=== PATIENT | female | born 1990 | race Caucasian/White ===

== ENCOUNTER → 2016-05-29 | Outpatient (CLI) | payer OTHER ==
[~2016-05-29] MED LIST: IBUP-1222 PO
== END | disposition home or self-care (01) ==
LOC: CFH 14:08
PROVIDERS: ATTEND Family Medicine
DX: N63 Unspecified lump in breast (principal); Z80.3 Family history of malignant neoplasm of breast

== ENCOUNTER → 2016-06-12 | Outpatient (CLI) | payer OTHER | END | disposition home or self-care (01) | LOC: CFH 09:14 | PROVIDERS: ATTEND Nurse Practitioner Primary Care | DX: Z83.2 Family history of diseases of the blood and blood-forming organs and certain disorders involving the immune mechanism (principal) | CPT/HCPCS: 36415; 81241 ==

== ENCOUNTER 2017-07-30 11:47 | Outpatient (CLI) | payer OTHER ==
[~2017-07-30] VITALS: Ht 170.2 cm; Wt 90.9 kg
[2017-07-30 12:25] LABS: BASOPHILS # (AUTO) 0.05 x10^3/uL (0-0.1); BASOPHILS % (AUTO) 0 % (0-1); EOSINOPHILS # (AUTO) 0.04 x10^3/uL (0-0.4); EOSINOPHILS % (AUTO) 0 % (1-7); LYMPHOCYTES # (AUTO) 2.44 x10^3/uL (1-3.4); LYMPHOCYTES % (AUTO) 17 % (22-44); MD NO; MEAN CORPUSCULAR HGB CONC 34.6 g/dL (32.4-35.8); MEAN CORPUSCULAR VOLUME 95.3 fL (80-100); MEAN PLATELET VOLUME 9.1 fL (7.4-10.4); MONOCYTES # (AUTO) 0.64 x10^3/uL (0.2-0.8); MONOCYTES % (AUTO) 5 % (2-9); NEUTROPHILS # (AUTO) 10.92 x10^3/uL (1.8-6.8); NEUTROPHILS % (AUTO) 78 % (42-75); PLATELET COUNT 198 x10^3/uL (130-400); RED BLOOD COUNT 4.16 x10^6/uL (3.82-5.3); RED CELL DISTRIBUTION WIDTH 13.5 % (9.6-15.2)
[2017-07-30 12:27] LABS: ALANINE AMINOTRANSFERASE 12 U/L (12-78); ALBUMIN 2.9 g/dL (3.4-5.0); ANION GAP 11 mmol/L (5-15); CALCIUM 8.9 mg/dL (8.5-10.1); CHLORIDE 107 mmol/L (98-107); CREATININE 0.57 mg/dL (0.55-1.02)
[2017-07-30 12:29] LABS: ALKALINE PHOSPHATASE 198 U/L (45-117); BILIRUBIN, DIRECT < 0.1 mg/dL (0.1-0.2); BILIRUBIN,TOTAL 0.2 mg/dL (0.2-1.0); TOTAL PROTEIN 6.7 g/dL (6.4-8.2)
[2017-07-30 12:32] VITALS: BP 130/78
[2017-07-30 12:32] LABS: CREATININE,URINE RANDOM 27.1 mg/dL
[2017-07-30 12:43] LABS: MICROSCOPIC INDICATED
[2017-07-30] MEDS ORDERED: PREN1TAB10 PO (13:25)
== END 2017-07-30 13:50 | disposition home or self-care (01) ==
LOC: LDOP 11:47
PROVIDERS: ATTEND Obstetrics & Gynecology
DX: Z36.9 Encounter for antenatal screening, unspecified (principal); O13.3 Gestational [pregnancy-induced] hypertension without significant proteinuria, third trimester; Z3A.38 38 weeks gestation of pregnancy
CPT/HCPCS: 36415; 59025; 76815; 80053; 81001; 82248; 82570; 83615; 84156; 84550; 85025; 99201; G0463

== ENCOUNTER 2017-08-06 21:46 | Outpatient (CLI) | payer OTHER ==
[~2017-08-06] VITALS: Ht 170.2 cm; Wt 92.0 kg
[~2017-08-06 21:46] MED LIST changes: +PREN1TAB10 PO
== END 2017-08-06 23:02 | disposition home or self-care (01) ==
LOC: LDOP 21:46
PROVIDERS: ATTEND Obstetrics & Gynecology
DX: O42.92 Full-term premature rupture of membranes, unspecified as to length of time between rupture and onset of labor (principal); Z3A.39 39 weeks gestation of pregnancy
CPT/HCPCS: 59025; 89060; 99211; G0463; Q0114

== ENCOUNTER 2017-08-11 15:05 | Inpatient (IN) | payer OTHER ==
[~2017-08-11] VITALS: Ht 170.2 cm; Wt 87.0 kg
[2017-08-11] MEDS ORDERED: OXYTOCIN 30U/ 0.9% NaCL 500ML 500 ML IV ONE (15:45)
[2017-08-11] MEDS ORDERED: OXYTOCIN 30U/ 0.9% NaCL 500ML 500 ML IV PRN (15:45)
[2017-08-11] MEDS ORDERED: LACTATED RINGERS 1,000 ML IV SCH ×2 (15:45→21:44)
[2017-08-11] MEDS ORDERED: D5%-LACTATED RINGERS 1,000 ML IV SCH (15:45)
[2017-08-11] MEDS ORDERED: PLEASE ENTER HEIGHT AND WEIGHT MC SCH (16:00)
[2017-08-11] MEDS ORDERED: FENTANYL PF 100 MCG/2ML IVPush PRN (16:00)
[2017-08-11] MEDS ORDERED: FENTANYL PF 100 MCG/2ML IV PRN (16:00)
[2017-08-11] MEDS ORDERED: TERBUTALINE 1 MG/ML, 1ML IVPush PRN (16:00)
[2017-08-11 16:16] LABS: BASOPHILS # (AUTO) 0.03 x10^3/uL (0-0.1); BASOPHILS % (AUTO) 0 % (0-1); EOSINOPHILS # (AUTO) 0.04 x10^3/uL (0-0.4); EOSINOPHILS % (AUTO) 0 % (1-7); LYMPHOCYTES # (AUTO) 2.52 x10^3/uL (1-3.4); LYMPHOCYTES % (AUTO) 19 % (22-44); MD NO; MEAN CORPUSCULAR HEMOGLOBIN 32.7 pg (27.0-34.8); MEAN CORPUSCULAR HGB CONC 34.5 g/dL (32.4-35.8); MEAN CORPUSCULAR VOLUME 94.7 fL (80-100); MEAN PLATELET VOLUME 9.2 fL (7.4-10.4); MONOCYTES # (AUTO) 0.51 x10^3/uL (0.2-0.8); MONOCYTES % (AUTO) 4 % (2-9); NEUTROPHILS # (AUTO) 10.08 x10^3/uL (1.8-6.8); NEUTROPHILS % (AUTO) 77 % (42-75); PLATELET COUNT 188 x10^3/uL (130-400); RED BLOOD COUNT 4.07 x10^6/uL (3.82-5.3); RED CELL DISTRIBUTION WIDTH 13.1 % (9.6-15.2)
[2017-08-11] MEDS ORDERED: LIDOCAINE/PF 1%, 30ML ONE (17:10)
[2017-08-11] MEDS ORDERED: MISOPROSTOL 200 MCG TABLET ONE (17:10)
[2017-08-11] MEDS ORDERED: NEWBORN KIT ONE (17:10)
[2017-08-11] MEDS ORDERED: OXYTOCIN 30U/ 0.9% NaCL 500ML 500 ML ONE (17:11)
[2017-08-11 17:22] VITALS: BP 125/67
[2017-08-11] MEDS ORDERED: DOCU-131 PO (17:58)
[2017-08-11] MEDS ORDERED: FENTANYL PF 100 MCG/2ML ONE ×2 (20:53→20:58)
[2017-08-11] MEDS ORDERED: BUPIVACAINE 0.25% ONE ×2 (20:53→20:58)
[2017-08-11] MEDS ORDERED: FENTANYL/BUPIV./NS/PF 250 ML EPIDCONT ONE ×2 (20:54→20:58)
[2017-08-11] MEDS ORDERED: LIDOCAINE/PF 1.5%-EPI 1:200K, 30ML ONE (20:58)
[2017-08-11] MEDS ORDERED: FENTANYL/BUPIV./NS/PF 250 ML EPIDCONT SCH (21:44)
[2017-08-11] MEDS ORDERED: LACTATED RINGERS 1,000 ML IVBOLUS PRN (22:00)
[2017-08-11] MEDS ORDERED: EPHEDRINE 50 MG/ML, 1ML IVPush PRN (22:00)
[2017-08-11] MEDS ORDERED: ONDANSETRON 2MG/ML, 2ML IVPush PRN (22:00)
[2017-08-12] MEDS ORDERED: OXYTOCIN 30U/ 0.9% NaCL 500ML 500 ML ONE (02:55)
[2017-08-12 03:40] VITALS: BP 101/59
[2017-08-12] MEDS: OXYTOCIN 30U/ 0.9% NaCL 500ML 500 ML IV SCH ×7 (05:17→13:53)
[2017-08-12] MEDS ORDERED: OXYTOCIN 30U/ 0.9% NaCL 500ML 500 ML IV SCH (05:17)
[2017-08-12] MEDS ORDERED: CALCIUM CARBONATE 500 MG TAB.CHEW PO PRN (05:30)
[2017-08-12] MEDS ORDERED: ONDANSETRON 2MG/ML, 2ML IV PRN (05:30)
[2017-08-12] MEDS ORDERED: HYDROcodone/APAP 5/325 TABLET PO PRN ×2 (05:30)
[2017-08-12] MEDS ORDERED: MISOPROSTOL 200 MCG TABLET PR PRN (05:30)
[2017-08-12] MEDS ORDERED: ACETAMINOPHEN 325 MG TABLET PO PRN ×2 (05:30)
[2017-08-12] MEDS: IBUPROFEN 600 MG TABLET PO PRN ×3 (05:46→20:46)
[2017-08-12 07:10] VITALS: BP 101/62
[2017-08-12] MEDS: DOCUSATE 100 MG CAPSULE PO PRN ×2 (08:34→20:46)
[2017-08-12] MEDS: ENOXAPARIN 40 MG/0.4 ML SQ SCH (08:34)
[2017-08-12] MEDS: PRENATAL VIT/IRON/FA 1 EACH TABLET PO SCH (08:34)
[2017-08-12 10:17] LABS: BASOPHILS # (AUTO) 0.05 x10^3/uL (0-0.1); BASOPHILS % (AUTO) 0 % (0-1); EOSINOPHILS # (AUTO) 0.04 x10^3/uL (0-0.4); EOSINOPHILS % (AUTO) 0 % (1-7); LYMPHOCYTES # (AUTO) 2.59 x10^3/uL (1-3.4); LYMPHOCYTES % (AUTO) 17 % (22-44); MD NO; MEAN CORPUSCULAR HEMOGLOBIN 32.7 pg (27.0-34.8); MEAN CORPUSCULAR HGB CONC 34.7 g/dL (32.4-35.8); MEAN CORPUSCULAR VOLUME 94.4 fL (80-100); MEAN PLATELET VOLUME 9.1 fL (7.4-10.4); MONOCYTES # (AUTO) 0.75 x10^3/uL (0.2-0.8); MONOCYTES % (AUTO) 5 % (2-9); NEUTROPHILS # (AUTO) 11.89 x10^3/uL (1.8-6.8); NEUTROPHILS % (AUTO) 78 % (42-75); PLATELET COUNT 140 x10^3/uL (130-400); RED BLOOD COUNT 3.37 x10^6/uL (3.82-5.3); RED CELL DISTRIBUTION WIDTH 13.2 % (9.6-15.2)
[2017-08-12 12:35] VITALS: BP 115/72
[2017-08-12 17:00] VITALS: BP 111/70
[2017-08-12 20:30] VITALS: BP 106/66
[2017-08-13 02:25] VITALS: BP 97/61
[2017-08-13] MEDS: IBUPROFEN 600 MG TABLET PO PRN (03:36)
[2017-08-13 08:15] VITALS: BP 112/74
[2017-08-13] MEDS: DOCUSATE 100 MG CAPSULE PO PRN (08:15)
[2017-08-13] MEDS: PRENATAL VIT/IRON/FA 1 EACH TABLET PO SCH (08:15)
[2017-08-13] MEDS: ENOXAPARIN 40 MG/0.4 ML SQ SCH (09:31)
[2017-08-13] MEDS ORDERED: ENOX40SY4 SQ (09:46)
[2017-08-13] MEDS ORDERED: IBUP-1222 PO (09:46)
== END 2017-08-13 11:45 | disposition home or self-care (01) | DRG 775 ==
LOC: LDIP 15:05 → 2NW 08-12 03:28
PROVIDERS: ADMIT Obstetrics & Gynecology; ATTEND Obstetrics & Gynecology
PROC: 10E0XZZ Delivery of Products of Conception, External Approach (ICD-10-PCS; principal; 2017-08-12)
PROC: 0KQM0ZZ Repair Perineum Muscle, Open Approach (ICD-10-PCS; 2017-08-12)
PROC: 10907ZC Drainage of Amniotic Fluid, Therapeutic from Products of Conception, Via Natural or Artificial Opening (ICD-10-PCS; 2017-08-12)
PROC: 3E033VJ Introduction of Other Hormone into Peripheral Vein, Percutaneous Approach (ICD-10-PCS; 2017-08-12)
PROC: 3E0R3BZ Introduction of Anesthetic Agent into Spinal Canal, Percutaneous Approach (ICD-10-PCS; 2017-08-12)
PROC: 00HU33Z Insertion of Infusion Device into Spinal Canal, Percutaneous Approach (ICD-10-PCS; 2017-08-12)
DX: O99.12 Other diseases of the blood and blood-forming organs and certain disorders involving the immune mechanism complicating childbirth (principal); D68.51 Activated protein C resistance; O70.1 Second degree perineal laceration during delivery; Z37.0 Single live birth; Z3A.40 40 weeks gestation of pregnancy
CPT/HCPCS: 36415; 82803; 85025; 86850; 86900; J1650; J3010; J3490; J2590; J7120

== ENCOUNTER 2020-06-06 12:47 | Outpatient (CLI) | payer OTHER ==
[~2020-06-06 12:47] MED LIST changes: +DOCU-131 PO; +ENOX40SY4 SQ
== END 2020-06-06 23:59 | disposition home or self-care (01) ==
LOC: CFH 12:47
PROVIDERS: ATTEND Obstetrics & Gynecology
DX: N60.01 Solitary cyst of right breast (principal); N63.0 Unspecified lump in unspecified breast
CPT/HCPCS: 76642; 77062; 77066; G0279